=== PATIENT | female | born 1975 ===

== ENCOUNTER 2017-10-18 09:03 | Emergency (ER) | payer BC ==
[2017-10-18 09:21] VITALS: BMI 23.9
[2017-10-18 09:24] VITALS: RESP 18; O2SAT 98
--- NOTE | 2017-10-18 10:15 | ED PDOC ---
HPI: General Adult Chief Complaint (Nursing): Dizziness/Lightheaded Chief Complaint (Provider): Dizziness/Lightheaded History Per: Patient History/Exam Limitations: no limitations Onset/Duration Of Symptoms: Days (x1) Current Symptoms Are (Timing): Still Present Additional Complaint(s): Blanca Hyde is a 41 year old female, with no significant past medical history, who present to the emergency department complaining of dizziness, lightheadedness and anxiety onset since last night. Patient reports she recently completed a course of clindamycin and rabies injections secondary to cat bite on right lower leg, finished on Oct 08. Patient was fine since but last night she started experiencing some dizziness and lightheadedness, she also had a similar episode this morning. Patient state she has been feeling very anxious recently. She denies any nausea, vomit, diarrhea, vaginal bleeding , cough, fever, urinary symptoms, chest pain, palpitations or shortness of breath. No further medical complaints. PMD: Josh Granados Past Medical History Reviewed: Historical Data, Nursing Documentation, Vital Signs Vital Signs: Last Vital Signs Temp Pulse 78 10/18/17 11:50 Resp 18 10/18/17 11:50 BP 128/78 10/18/17 11:50 Pulse Ox 98 10/18/17 11:50 - Medical History PMH: No Chronic Diseases - Surgical History Surgical History: No Surg Hx - Family History Family History: States: Unknown Family Hx - Social History Current smoker - smoking cessation education provided: No Alcohol: None Drugs: Denies - Home Medications Home Medications: Ambulatory Orders Medication Instructions Recorded Meclizine [Meclizine*] 25 mg PO Q6 #30 tab 07/05/16 diaZEpam [Valium] 5 mg PO Q8 PRN #5 tab 10/18/17 - Allergies Allergies/Adverse Reactions: Allergies Allergy/AdvReac Type Severity Reaction Status Date / Time Penicillins Allergy ITCHING Verified 07/04/16 22:19 Review of Systems ROS Statement: Except As Marked, All Systems Reviewed And Found Negative Constitutional: Negative for: Fever Cardiovascular: Positive for: Light Headedness. Negative for: Chest Pain, Palpitations Respiratory: Negative for: Cough, Shortness of Breath Gastrointestinal: Negative for: Nausea, Vomiting, Diarrhea Genitourinary Female: Negative for: Dysuria, Frequency, Incontinence, Vaginal Bleeding Neurological: Positive for: Dizziness Psych: Positive for: Anxiety Physical Exam - Reviewed Nursing Documentation Reviewed: Yes Vital Signs Reviewed: Yes - Physical Exam Appears: Positive for: Well, Non-toxic, No Acute Distress Head Exam: Positive for: ATRAUMATIC, NORMAL INSPECTION, NORMOCEPHALIC Skin: Positive for: Normal Color, Warm, Dry Eye Exam: Positive for: Normal appearance, EOMI, PERRL Neck: Positive for: Painless ROM, Supple Cardiovascular/Chest: Positive for: Regular Rate, Rhythm. Negative for: Murmur Respiratory: Positive for: Normal Breath Sounds. Negative for: Respiratory Distress Gastrointestinal/Abdominal: Positive for: Normal Exam, Soft. Negative for: Tenderness, Guarding, Rebound Back: Positive for: Normal Inspection. Negative for: L CVA Tenderness, R CVA Tenderness, Vertebral Tenderness Extremity: Positive for: Normal ROM, Other (Cat bite chong noted to right lower leg. No erythema, warmth or swelling.). Negative for: Deformity, Swelling Neurologic/Psych: Positive for: Alert, Oriented - ECG ECG Rhythm: Positive for: Sinus Bradycardia Rate: 45 O2 Sat by Pulse Oximetry: 98 (RA) Pulse Ox Interpretation: Normal Medical Decision Making Medical Decision Making: Initial Impression: Anxiety vs benign positional vertigo. Initial Plan: --EKG --Valium 5 mg PO --Glucose, blood, POC --Orthostatic BP --reevaluation 11:25 --Patient is feeling better and no longer having dizziness 11:30 --Upon provider evaluation patient is medically stable, and requires no further treatment in the ED at this time. Patient will be discharged home. Counseling was provided and all questions were answered regarding diagnosis and need for follow up. There is agreement to discharge plan. Return if symptoms persist or worsen. Scribe Attestation: Documented by Dakota Toscano, acting as a scribe for Otoniel Simon MD Provider Scribe Attestation: All medical record entries made by the Scribe were at my direction and personally dictated by me. I have reviewed the chart and agree that the record accurately reflects my personal performance of the history, physical exam, medical decision making, and the department course for this patient. I have also personally directed, reviewed, and agree with the discharge instructions and disposition. Disposition - Clinical Impression Clinical Impression: Dizziness - Patient ED Disposition Is Patient to be Admitted: No - Disposition Referrals: Josh Granados MD [Staff Provider] - Disposition: Routine/Home Disposition Time: 11:30 Condition: IMPROVED Additional Instructions: Ms Hyde, thank you for letting us take care of you today. Your provider was Dr. Simon. You were treated for Dizziness. The emergency medical care you received today was directed at your acute symptoms. If you were prescribed any medication, please fill it and take as directed. It may take several days for your symptoms to resolve. Return to the Emergency Department if your symptoms worsen, do not improve, or if you have any other problems. Please contact your doctor or call one of the physicians/clinics you have been referred to that are listed on the Patient Visit Information form that is included in your discharge packet. Bring any paperwork you were given at discharge with you along with any medications you are taking to your follow up visit. Our treatment cannot replace ongoing medical care by a primary care provider (PCP) outside of the emergency department. Thank you for allowing the [facility] team to be part of your care today. If you had an X-Ray or CT scan: A Radiologist will review the ED reading if any change in treatment is needed we will contact you. If you had a blood, urine, or wound culture: It will take several days for the results, if any change in treatment is needed we will contact you. If you had an STI test: It will take 48 hours for the results. Please call after 1 week if you have not heard back. Prescriptions: diaZEpam [Valium] 5 mg PO Q8 PRN #5 tab PRN Reason: Dizziness Forms: [employer] ([place]), [facility] School/Work Excuse Print Language: LATVIAN
[2017-10-18 13:39] VITALS: BP 128/78
--- NOTE | 2017-10-19 11:30 | CARD ---
APPROVED REPORT EKG Measurement Heart [id number] <Conclusion> Sinus bradycardia with short TN Otherwise normal ECG
[2017-10-21 18:40] VITALS: PULSE 45
== END 2017-10-18 12:00 | disposition home or self-care (01) ==
LOC: H.ER 09:03
DX: R42 Dizziness and giddiness (principal); Z88.0 Allergy status to penicillin